=== PATIENT | male | born 1935 | race Caucasian/White ===

== ENCOUNTER 2019-03-02 13:49 | Observation (INO) ==
--- NOTE | 2019-03-02 14:00 | ERNOTE ---
Medical Problem HPI - Narrative Date of Service: 03/02/19 - General Chief Complaint: Nausea/Vomiting Time Seen by Provider: 03/02/19 13:59 Source: patient, RN notes reviewed Exam Limitations: no limitations - Immun/Allergies/Home Medications Allergies/Adverse Reactions: Allergies Penicillins Allergy (Verified 02/15/14 12:44) Sulfa (Sulfonamide Antibiotics) Allergy (Verified 02/15/14 12:44) Home Medications: HOME MEDICATIONS Acetaminophen [Tylenol Extra Strength] 500 mg PO PRN PRN 02/15/14 [Last Taken Unknown] Aspirin [Ecotrin] 325 mg PO DAILY 02/15/14 [Last Taken 02/14/14 09:00] Cholecalciferol (Vitamin D3) [Vitamin D] 2,000 unit PO DAILY 02/15/14 [Last Taken 02/14/14 09:00] Multivitamins [Multivitamin Maximiliano] 1 cap PO DAILY 02/15/14 [Last Taken 02/14/14 09:00] Psyllium Husk (with Sugar) [Metamucil Packet] 1 each PO DAILY 02/15/14 [Last Taken Unknown] Pramipexole Di-HCl 08/02/15 [Last Taken Unknown] Ascorbic Acid [Vitamin C] 1,000 mg PO DAILY 03/02/19 [Last Taken Unknown] Cholecalciferol (Vitamin D3) [Vitamin D3] 2,000 unit PO DAILY 03/02/19 [Last Taken Unknown] Finasteride [Proscar] 5 mg PO DAILY 03/02/19 [Last Taken Unknown] Loratadine 10 mg PO DAILY 03/02/19 [Last Taken Unknown] Losartan Potassium 50 mg PO BID 03/02/19 [Last Taken Unknown] Montelukast Sodium [Singulair] 10 mg PO DAILY 03/02/19 [Last Taken Unknown] Multivitamins [Multivitamin Maixmiliano] 1 cap PO DAILY 03/02/19 [Last Taken Unknown] Ranitidine HCl 300 mg PO DAILY 03/02/19 [Last Taken Unknown] Tamsulosin HCl [Flomax] 0.4 mg PO DAILY 03/02/19 [Last Taken Unknown] - History of Present History Narrative: Daniel is a 84 year old male brought to the ED by his family for nausea and vomiting. He has been nauseated for several days and attributes this to recently being changed from omeprazole to ranitidine. He also reports having pain in his epigastric region and chest. He has been fasting to have routine labwork drawn since 2200 last night. 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 His family also reports that he has been complaining of dizziness for some time and reports that he passes out at home occasionally. Review of Systems - Review of Systems Constitutional: Present: fatigue, malaise. Absent: fever, chills EYE: Present: no symptoms reported ENT: Absent: nose congestion, sore throat Respiratory: Present: cough. Absent: shortness of breath Cardiology: Present: chest pain, syncope. Absent: edema Gastrointestinal/Abdominal: Present: nausea, vomiting, eating less, drinking less. Absent: diarrhea Genitourinary: Present: no symptoms reported Musculoskeletal: Absent: muscle pain, joint pain Skin: Absent: rash, lesions Neurological: Present: dizziness/light-headedness. Absent: headache Endocrine: Present: no symptoms reported Hematologic/Lymphatic: Absent: easy bruising, easy bleeding Psych: Present: no symptoms reported Medical History (Updated 03/02/19 @ 19:21 by Alexa Stewart) BPH (benign prostatic hyperplasia) Hypertension Seasonal allergies Surgical History: Surgical History (Updated 03/02/19 @ 19:09 by Kathi Capellan NP) H/O heart artery stent Social History: Preferred Language Estonian Smoking Status Former smoker Alcohol Use none Drug Use none No Social History Section defined Physical Exam - Physical Exam General Appearance: Present: alert, thin, other - In no acute distress but appears to not feel well Head Exam: Present: normal inspection Eye Exam: Normal inspection: bilateral Ears, Nose, Throat: Present: normal ENT inspection, normal pharynx Neck: Present: normal inspection, nontender, supple Respiratory: Present: no respiratory distress, normal breath sounds, no accessory muscle use, lungs clear Cardiovascular/Chest: Present: regular rate, rhythm, no murmur, normal peripheral pulses Gastrointestinal/Abdominal: Present: nondistended, soft, tenderness - mild, epigastric Extremity Exam: Present: normal inspection, no edema Neurological Exam: Present: alert, oriented, normal mood/affect, no motor/sensory deficits Skin Exam: Present: warm/dry, pallor Progress - Results and Orders Patient's Lab Results:: I have reviewed the patient's lab results. - Vital Signs Patient's Vital Signs:: I have reviewed the patient's vital signs. Vital Signs: Vital Signs 03/02/19 13:49 Temperature 36.7 C Pulse Rate 109 H Respiratory Rate 18 Blood Pressure 125/92 H - EKG EKG #1 EKG: NSR, nonspecific ST T wave changes EKG read: Reviewed by me EKG #2 EKG: NSR, nonspecific ST T wave changes, unchanged from - today at 1401 EKG read: Reviewed by me - X-Ray X-Ray #1 X-Ray: chest Interpretation: Reviewed by me X-ray Comments: No acute cardiopulmonary process - CT/Ultrasound CT/Ultrasound Narrative: Abdominal US shows no acute process - Progress/Reassessment Chief Complaint: Nausea/Vomiting Progress:: Unchanged Progress Note-Subjective: 03/02/19 20:26 The patient was initially given a GI cocktail with some improvement. He became nauseous a short while later and was given Zofran. He has continued to complain of nausea and left sided chest pain off and on. He was given a liter of IV NS and has continued to be orthostatic. A second liter is currently infusing. Due to his symptoms along with an elevated WBC at 14,000 and a bilirubin of 1.2, an abdominal ultrasound was done. This was negative. A repeat EKG and troponin were done. The EKG was unchanged, but his troponin went up slightly from 0.019 to 0.032. He continues to have intermittent chest pain and nausea. Given the intermittent nature of his pain and his upset stomach, nitroglycerin and aspirin were not given. Dr. Chester was contacted and the patient will be admitted to observation. Departure Clinical Impression: Dehydration Chest pain Qualifiers: Chest pain type: unspecified Qualified Code(s): R07.9 - Chest pain, unspecified - Departure Disposition: Still a patient Condition: Fair Referrals: Mariaa Martinez, DERRICK OPERATOR [Primary Care Provider] -
[2019-03-02] MEDS ORDERED: MAG HYDROX/ALUMINUM HYD/SIMETH 30 ML UDC PO ONE (14:21)
[2019-03-02] MEDS ORDERED: LIDOCAINE HCL 20 ML UDC PO ONE (14:21)
[2019-03-02] MEDS ORDERED: BELLADONNA ALKALOIDS/PHENOBARB 60 ML BTL PO ONE (14:21)
[2019-03-02 14:39] LABS: Hematocrit 40.4 % (42.0-52.0); Hemoglobin 14.3 gm/dL (13.5-18.0); Mean Corpuscular Hemoglobin 32.2 pg (27-31); Mean Corpuscular Hgb Conc 35.4 g/dl (32-36); Neutrophil # 10.4 K/mm3 (1.3-6.0); Neutrophil % 73.2 % (42-75.0); Platelet Count 230 K/mm3 (150-450); Red Blood Count 4.44 M/mm3 (4.7-6.0); Red Cell Distribution Width 12.2 % (11.5-14.0); White Blood Count 14.2 K/mm3 (4.0-10.5)
[2019-03-02 14:56] LABS: Albumin * 3.8 gm/dl (3.4-5.0); Anion Gap 16.4 mmol/L (6.8-13.8); BUN/Creatinine Ratio 17.4 (9.0-21.6); Bilirubin, Total 1.2 mg/dL (0.0-1.1); Ca. Corrected For Albumin 8.7 mg/dL (8.4-10.2); Calcium * 8.9 mg/dL (7.9-10.9); Potassium 4.4 mmol/L (3.4-4.6); Total Protein 6.8 gm/dL (6.2-8.2)
[2019-03-02 14:57] LABS: Troponin I 0.019 ng/mL (0.00-0.10)
[2019-03-02] MEDS ORDERED: NORMAL SALINE 1,000 ML IV ONE ×2 (15:39→19:23)
[2019-03-02] MEDS ORDERED: ONDANSETRON HCL/PF 2 MG/ML VIAL IV ONE (16:00)
[2019-03-02] MEDS ORDERED: ONDANSETRON HCL/PF 2 MG/ML VIAL ONE (16:01)
[2019-03-02 16:26] LABS: Amylase * 59 U/L (25-115); Lipase 152 U/L (73-393)
[2019-03-02] MEDS ORDERED: CALCIUM CARBONATE 500 MG TAB.CHEW PO PRN (22:02)
--- NOTE | 2019-03-03 00:43 | HP ---
Chief Complaint - Chief Complaint Date of Service: 03/03/19 Time of Service: 00:42 Chief Complaint: dehydration, chest pain History of Present Illness: 84-year-old male presented to the ER yesterday evening with 2 weeks of nausea, vomiting, diarrhea. Patient states he is been able to keep anything down really for the last few days and is felt weak and tired. We brought him to the ER was that he started having chest pain the day prior to admission. Initial work-up showed him to be orthostatic with his pressure dropped from 130/80 and down into the 90s over 60s as well as being symptomatic with dizziness and lightheadedness. EKG obtained in the ER was normal sinus rhythm and showed no ST changes. Initial troponin was negative. Patient was prepared to be discharged home with follow-up with his PCP but it was decided to obtain another troponin level prior to this which increased slightly. He was brought in due to concern of possible acute coronary syndrome even though his troponins were technically still with the negative range but due to his endorsement of chest pain that started in his left side and radiated up into his shoulder as well as the nausea and vomiting that he had been having, it was decided to observation overnight. Continued monitoring of his cardiac enzymes showed him to gradually increase overnight with his most recent one being 0.143. Again no changes in his EKG. Pain slightly improved with nitro sublingual. It was decided to transfer the patient to [facility] for cardiac monitoring due to his history of ACS requiring stenting many years ago. 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 Pertinent labs include a mildly elevated white count of 14.2 with no shift. He also had an acute kidney injury with a creatinine of 1.9 that trended downward overnight to 1.6 with an increase of his GFR of 36-43. UA was negative. The above-mentioned cardiac enzymes were the only other really pertinent labs. His vital signs are stable aside from the orthostatic hypotension. Heart rate was within normal limits. Maintained oxygen saturations within normal limits Medical History (Updated 03/03/19 @ 01:46 by Hailey Castañeda RN) Restless leg syndrome BPH (benign prostatic hyperplasia) Hypertension Seasonal allergies Surgical History: Surgical History (Updated 03/03/19 @ 00:43 by Bdudy Chester DO) H/O heart artery stent Social History: Patient Lives/Resources Home Utilized Preferred Language Dutch Do you have any hindu or Yes: methodist cultural preference? Smoking Status Former smoker Have you smoked in the past 12 No months Alcohol Use none Drug Use none No Social History Section defined Review Of Systems (GEN) - Review of Systems Generalized/Overall Review: Present: Weakness, Weight loss. Absent: Chills, Fever EENTM: Present: No Symptoms Reported Respiratory: Present: Shortness of Breath. Absent: Cough Cardiac: Present: Chest Pain. Absent: Edema, Palpitations, Syncope Abdominal: Present: Nausea, Vomiting, Abdominal Pain, Diarrhea Genitourinary: Present: No Symptoms Reported Musculoskeletal: Present: No Symptoms Reported Neurological: Present: No Symptoms Reported Skin: Present: No Symptoms Reported Endocrine: Present: No Symptoms Reported Allergies/Adverse Reactions: Allergies Allergy/AdvReac Type Severity Reaction Status Date / Time Penicillins Allergy Verified 02/15/14 12:44 Sulfa (Sulfonamide Allergy Verified 02/15/14 12:44 Antibiotics) Home Medications: HOME MEDICATIONS Acetaminophen [Tylenol Extra Strength] 500 mg PO PRN PRN 02/15/14 [Last Taken Unknown] Aspirin [Ecotrin] 325 mg PO DAILY 02/15/14 [Last Taken 03/01/19] Cholecalciferol (Vitamin D3) [Vitamin D] 2,000 unit PO DAILY 02/15/14 [Last Taken 03/01/19] Multivitamins [Multivitamin Maximiliano] 1 cap PO DAILY 02/15/14 [Last Taken 03/01/19] Psyllium Husk (with Sugar) [Metamucil Packet] 1 each PO DAILY 02/15/14 [Last Taken 03/01/19] Ascorbic Acid [Vitamin C] 1,000 mg PO DAILY 03/02/19 [Last Taken 03/01/19] Finasteride [Proscar] 5 mg PO DAILY 03/02/19 [Last Taken Unknown] Loratadine 10 mg PO DAILY 03/02/19 [Last Taken 03/01/19] Losartan Potassium 50 mg PO BID 03/02/19 [Last Taken 03/01/19] Montelukast Sodium [Singulair] 10 mg PO DAILY 03/02/19 [Last Taken 03/01/19] Ranitidine HCl 300 mg PO DAILY 03/02/19 [Last Taken 03/01/19] Tamsulosin HCl [Flomax] 0.4 mg PO DAILY 03/02/19 [Last Taken 03/01/19] Triamcinolone Acetonide [Nasacort] 1 spray NS DAILY PRN 03/02/19 [Last Taken Unknown] Exam - Exam Vital Signs: Vital Signs - Last Taken Temp 37.5 C 03/02/19 21:15 Pulse 94 03/02/19 21:15 Resp 16 03/02/19 21:15 BP 157/80 H 03/02/19 21:15 Pulse Ox 95 03/02/19 21:15 Constitutional: Present: Alert, Oriented x3, Elderly ENT Exam: Present: nasal congestion, nasal drainage, pharyngeal erythema Eye Exam: bilateral eye: normal inspection Neck: Present: non-tender, supple Back Exam: Present: no CVA tenderness - Your Respiratory: Present: lungs clear, normal breath sounds, no respiratory distress Cardiovascular/Chest: Present: normal peripheral pulses - Is, regular rate, rhythm, no edema Abdomen: Present: Normal bowel sounds, soft, tender - Diffusely that diffusely tender, nondistended, no rebound or guarding. Worse in the left lower quadrant. Absent: suprapubic tenderness, firm, positive Palmer sign /Rectal: Present: Exam deferred Lymphatic: Present: no adenopathy Neurologic: Present: alert, normal mood/affect, oriented x 3 - No, dizzy/light- headedness - With standing secondary to orthostatic hypotension Appearance: Present: appropriate appearance, appropriate insight, no memory impairment Eye contact: Present: cooperative, good eye contact Thoughts: Present: normal thought pattern, normal mood /affect Diagnostic Studies: Abnormal Lab Results 03/02/19 03/02/19 Range/Units 14:35 14:35 WBC 14.2 H (4.0-10.5) K/mm3 RBC 4.44 L (4.7-6.0) M/mm3 Hct 40.4 L (42.0-52.0) % MCH 32.2 H (27-31) pg Immature Gran # (Auto) 0.06 H (0.000-0.0310) K/mm3 Lymphocytes % 19.0 L (20-51) % Neutrophils # 10.4 H (1.3-6.0) K/mm3 Carbon Dioxide 22.0 L (24-32.6) mmol/L Anion Gap 16.4 H (6.8-13.8) mmol/L BUN 33 H (6-23) mg/dL Creatinine 1.90 H (0.4-1.4) mg/dL Est GFR (Non-Af Amer) 36 L (60-130) mL/min Random Glucose 139 H (70-110) mg/dL Total Bilirubin 1.2 H (0.0-1.1) mg/dL ALT 15 L (19-67) U/L Laboratory Results WBC 14.2 K/mm3 (4.0-10.5) H 03/02/19 14:35 RBC 4.44 M/mm3 (4.7-6.0) L 03/02/19 14:35 Hgb 14.3 gm/dL (13.5-18.0) 03/02/19 14:35 Hct 40.4 % (42.0-52.0) L 03/02/19 14:35 MCV 91.0 fl (78-100) 03/02/19 14:35 MCH 32.2 pg (27-31) H 03/02/19 14:35 MCHC 35.4 g/dl (32-36) 03/02/19 14:35 RDW 12.2 % (11.5-14.0) 03/02/19 14:35 Plt Count 230 K/mm3 (150-450) 03/02/19 14:35 MPV 10.0 fl (8-11.3) 03/02/19 14:35 Immature Gran % (Auto) 0.40 % (0.001-0.429) 03/02/19 14:35 Immature Gran # (Auto) 0.06 K/mm3 (0.000-0.0310) H 03/02/19 14:35 73.2 % (42-75.0) 03/02/19 14:35 19.0 % (20-51) L 03/02/19 14:35 7.2 % (0.0-9) 03/02/19 14:35 0.1 % (0.0-3.0) 03/02/19 14:35 0.1 % (0.0-1.0) 03/02/19 14:35 Nucleated RBC % 0.0 k/mm3 (0-1) 03/02/19 14:35 10.4 K/mm3 (1.3-6.0) H 03/02/19 14:35 2.69 k/mm3 (1.5-3.5) 03/02/19 14:35 1.0 k/mm3 (0.0-1.0) 03/02/19 14:35 0.0 k/mm3 (0.0-0.7) 03/02/19 14:35 Absolute Basophils 0.0 k/mm3 (0.0-0.1) 03/02/19 14:35 Sodium 136 mmol/L (132-142) 03/02/19 14:35 137 mmol/L (130-142) 03/02/19 14:35 Potassium 4.4 mmol/L (3.4-4.6) 03/02/19 14:35 Chloride 102 mmol/L (97-106) 03/02/19 14:35 Carbon Dioxide 22.0 mmol/L (24-32.6) L 03/02/19 14:35 16.4 mmol/L (6.8-13.8) H 03/02/19 14:35 BUN 33 mg/dL (6-23) H 03/02/19 14:35 1.90 mg/dL (0.4-1.4) H 03/02/19 14:35 Est GFR (Non-Af Amer) 36 mL/min (60-130) L 03/02/19 14:35 17.4 (9.0-21.6) 03/02/19 14:35 139 mg/dL (70-110) H 03/02/19 14:35 Calcium 8.9 mg/dL (7.9-10.9) 03/02/19 14:35 Calcium Adj for Albumin 8.7 mg/dL (8.4-10.2) 03/02/19 14:35 1.2 mg/dL (0.0-1.1) H 03/02/19 14:35 AST 16 U/L (0-48) 03/02/19 14:35 ALT 15 U/L (19-67) L 03/02/19 14:35 75 U/L (50-170) 03/02/19 14:35 0.041 ng/mL (0.00-0.10) 03/02/19 22:35 6.8 gm/dL (6.2-8.2) 03/02/19 14:35 3.8 gm/dl (3.4-5.0) 03/02/19 14:35 Amylase 59 U/L (25-115) 03/02/19 14:35 152 U/L (73-393) 03/02/19 14:35 Assessment/Plan - Narrative Narrative: 84-year-old male placed in observation for gastroenteritis, dehydration, acute kidney injury as well his recent onset chest pain. While here troponins continue to increase overnight though there are no EKG changes. He was started on Lovenox and aspirin was continued. He was started on a statin. Vital signs remained stable and is afebrile. Due to patient's history of acute coronary syndrome requiring stenting years prior it was thought best to transfer patient [facility] for likely catheterization as patient continues to have chest pain with radiation into his left shoulder as well as nausea vomiting. Again most likely this is all related to his fluid deficit and his recent illness but I feel like it is best that he is in a hospital that has cardiac monitoring with the ability to intervene if needed. Case was discussed with Dr. Mandie Poole of who was in agreement with the treatment plan and accepted transfer. Patient will follow-up with me once he is discharged from the hospital emergency. Kidney function improved following 2 L of fluid given overnight. Initial creatinine is 1.9 that dropped down to 1.66, GFR improved from 36 and 43. Will start 1 more bag of fluid prior to transfer to help with this as he is still orthostatic Patient still nauseated but has not vomited since being here. This has been controlled with antinausea medicines. - Assessment/Plan (1) Gastroenteritis Problem: Acute (2) Allergic rhinitis Problem: Acute (3) Elevated troponin I level Problem: Acute (4) ACS (acute coronary syndrome) Problem: Suspected (5) Chest pain Problem: Acute Qualifiers: Chest pain type: unspecified Qualified Code(s): R07.9 - Chest pain, unspecified (6) MELANIE (acute kidney injury) Problem: Acute
[2019-03-03] MEDS ORDERED: TRIAMCINOLONE ACETONIDE NS PRN ×2 (00:45→07:00)
[2019-03-03 00:52] LABS: Urine Bilirubin Negative (NEGATIVE); Urine Blood Negative /ul (NEGATIVE); Urine Ketone 5 mg/dL (NEGATIVE); Urine Nitrite Negative (NEGATIVE); Urine Protein Negative (NEGATIVE); Urine Urobilinogen Normal (NORMAL)
[2019-03-03 01:00] LABS: Urine Appearance Clear (CLEAR); Urine Bacteria TRACE; Urine Color Yellow; Urine RBC None Seen /hpf (0-5); Urine WBC None Seen /hpf (0-5)
[2019-03-03 05:29] LABS: Hematocrit 36.8 % (42.0-52.0); Mean Cell Volume 92.5 fl (78-100); Mean Corpuscular Hemoglobin 32.7 pg (27-31); Mean Corpuscular Hgb Conc 35.3 g/dl (32-36); Mean Platelet Volume 10.1 fl (8-11.3); Neutrophil # 8.4 K/mm3 (1.3-6.0); Neutrophil % 68.2 % (42-75.0); Platelet Count 182 K/mm3 (150-450); Red Blood Count 3.98 M/mm3 (4.7-6.0); Red Cell Distribution Width 12.3 % (11.5-14.0); White Blood Count 12.4 K/mm3 (4.0-10.5)
[2019-03-03 05:46] LABS: Albumin * 3.3 gm/dl (3.4-5.0); Anion Gap 15.7 mmol/L (6.8-13.8); BUN/Creatinine Ratio 15.7 (9.0-21.6); Bilirubin, Total 1.2 mg/dL (0.0-1.1); Ca. Corrected For Albumin 8.4 mg/dL (8.4-10.2); Calcium * 8.2 mg/dL (7.9-10.9); Carbon Dioxide 22.6 mmol/L (24-32.6); Potassium 4.3 mmol/L (3.4-4.6); Total Protein 6.1 gm/dL (6.2-8.2); Troponin I 0.102 ng/mL (0.00-0.10)
[2019-03-03] MEDS ORDERED: ENOXAPARIN SODIUM 40 MG/0.4 ML SYRG SC SCH ×2 (07:00→08:00)
[2019-03-03] MEDS ORDERED: LORATADINE 10 MG TABLET PO SCH (09:00)
[2019-03-03] MEDS ORDERED: FAMOTIDINE 20 MG TABLET PO SCH (09:00)
[2019-03-03] MEDS ORDERED: TAMSULOSIN HCL 0.4 MG CAP.SR.24H PO SCH ×2 (09:00→18:00)
[2019-03-03] MEDS ORDERED: MONTELUKAST SODIUM 10 MG TABLET PO SCH ×2 (09:00→21:00)
[2019-03-03] MEDS ORDERED: ASPIRIN 325 MG TABLET.DR PO SCH (09:00)
[2019-03-03] MEDS ORDERED: LOSARTAN POTASSIUM 50 MG TABLET PO SCH (09:00)
[2019-03-03] MEDS ORDERED: NORMAL SALINE 1,000 ML IV PRN (10:24)
[2019-03-03] MEDS ORDERED: NITROGLYCERIN 0.4 MG/TAB BTL SL PRN (10:25)
[2019-03-03 10:46] VITALS: BP 127/77
--- NOTE | 2019-03-03 11:16 | DS ---
Transfer Discharge Summary - Diagnosis(s)/Problems (1) Chest pain Problem: Acute (2) Elevated troponin I level Problem: Acute (3) Gastroenteritis Problem: Acute (4) Allergic rhinitis Problem: Acute (5) ACS (acute coronary syndrome) Problem: Suspected (6) MELANIE (acute kidney injury) Problem: Acute - Course Description of Stay: 84-year-old male presented to the ER yesterday evening with 2 weeks of nausea, vomiting, diarrhea. Patient states he is been able to keep anything down really for the last few days and is felt weak and tired. We brought him to the ER was that he started having chest pain the day prior to admission. Initial work-up showed him to be orthostatic with his pressure dropped from 130/80 and down into the 90s over 60s as well as being symptomatic with dizziness and lightheadedness. EKG obtained in the ER was normal sinus rhythm and showed no ST changes. Initial troponin was negative. Patient was prepared to be discharged home with follow-up with his PCP but it was decided to obtain another troponin level prior to this which increased slightly. He was brought in due to concern of possible acute coronary syndrome even though his troponins were technically still with the negative range but due to his endorsement of chest pain that started in his left side and radiated up into his shoulder as well as the nausea and vomiting that he had been having, it was decided to observation overnight. Continued monitoring of his cardiac enzymes showed him to gradually increase overnight with his most recent one being 0.143. Again no changes in his EKG. Pain slightly improved with nitro sublingual. It was decided to transfer the patient to [facility] for cardiac monitoring due to his history of ACS requiring stenting many years ago. 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 Pertinent labs include a mildly elevated white count of 14.2 with no shift. He also had an acute kidney injury with a creatinine of 1.9 that trended downward overnight to 1.6 with an increase of his GFR of 36-43. UA was negative. The above-mentioned cardiac enzymes were the only other really pertinent labs. His vital signs are stable aside from the orthostatic hypotension. Heart rate was within normal limits. Maintained oxygen saturations within normal limits Procedures Performed: none - Results and Findings Results and Findings: Laboratory Results - last 24 hr 03/02/19 03/02/19 03/02/19 14:35 14:35 14:35 WBC 14.2 H RBC 4.44 L Hgb 14.3 Hct 40.4 L MCV 91.0 MCH 32.2 H MCHC 35.4 RDW 12.2 Plt Count 230 MPV 10.0 Immature Gran % (Auto) 0.40 Immature Gran # (Auto) 0.06 H Neutrophils % 73.2 Lymphocytes % 19.0 L Monocytes % 7.2 Eosinophils % 0.1 Basophils % 0.1 Nucleated RBC % 0.0 Neutrophils # 10.4 H Lymphocytes # 2.69 Monocytes # 1.0 Eosinophils # 0.0 Absolute Basophils 0.0 Sodium 136 Plasma Sodium 137 Potassium 4.4 Chloride 102 Carbon Dioxide 22.0 L Anion Gap 16.4 H BUN 33 H Creatinine 1.90 H Est GFR (Non-Af Amer) 36 L BUN/Creatinine Ratio 17.4 Random Glucose 139 H Calcium 8.9 Calcium Adj for Albumin 8.7 Total Bilirubin 1.2 H AST 16 ALT 15 L Alkaline Phosphatase 75 Troponin I 0.019 Total Protein 6.8 Albumin 3.8 Amylase 59 Lipase 152 Urine Color Urine Appearance Urine pH Ur Specific Leola Urine Protein Urine Glucose (UA) Urine Ketones Urine Blood Urine Nitrate Urine Bilirubin Urine Urobilinogen Ur Leukocyte Esterase Urine RBC Urine WBC Ur Epithelial Cells Urine Bacteria Urine Culture Comments 03/02/19 03/02/19 03/03/19 19:50 22:35 00:48 WBC RBC Hgb Hct MCV MCH MCHC RDW Plt Count MPV Immature Gran % (Auto) Immature Gran # (Auto) Neutrophils % Lymphocytes % Monocytes % Eosinophils % Basophils % Nucleated RBC % Neutrophils # Lymphocytes # Monocytes # Eosinophils # Absolute Basophils Sodium Plasma Sodium Potassium Chloride Carbon Dioxide Anion Gap BUN Creatinine Est GFR (Non-Af Amer) BUN/Creatinine Ratio Random Glucose Calcium Calcium Adj for Albumin Total Bilirubin AST ALT Alkaline Phosphatase Troponin I 0.032 0.041 Total Protein Albumin Amylase Lipase Urine Color Yellow Urine Appearance Clear Urine pH 6.0 Ur Specific [place] 1.020 Urine Protein Negative Urine Glucose (UA) Negative Urine Ketones 5 Urine Blood Negative Urine Nitrate Negative Urine Bilirubin Negative Urine Urobilinogen Normal Ur Leukocyte Esterase Negative Urine RBC None seen Urine WBC None seen Ur Epithelial Cells None seen Urine Bacteria Trace Urine Culture Comments No culture indicated 03/03/19 03/03/19 03/03/19 05:27 05:27 07:07 WBC 12.4 H RBC 3.98 L Hgb 13.0 L Hct 36.8 L MCV 92.5 MCH 32.7 H MCHC 35.3 RDW 12.3 Plt Count 182 MPV 10.1 Immature Gran % (Auto) 0.20 Immature Gran # (Auto) 0.03 Neutrophils % 68.2 Lymphocytes % 23.5 Monocytes % 7.9 Eosinophils % 0.0 Basophils % 0.2 Nucleated RBC % 0.0 Neutrophils # 8.4 H Lymphocytes # 2.91 Monocytes # 1.0 Eosinophils # 0.0 Absolute Basophils 0.0 Sodium 139 Plasma Sodium 139 Potassium 4.3 Chloride 105 Carbon Dioxide 22.6 L Anion Gap 15.7 H BUN 26 H Creatinine 1.66 H Est GFR (Non-Af Amer) 42 L BUN/Creatinine Ratio 15.7 Random Glucose 123 H Calcium 8.2 Calcium Adj for Albumin 8.4 Total Bilirubin 1.2 H AST 16 ALT 13 L Alkaline Phosphatase 67 Troponin I 0.102 H 0.143 H* Total Protein 6.1 L Albumin 3.3 L Amylase Lipase Urine Color Urine Appearance Urine pH Ur Specific [place] Urine Protein Urine Glucose (UA) Urine Ketones Urine Blood Urine Nitrate Urine Bilirubin Urine Urobilinogen Ur Leukocyte Esterase Urine RBC Urine WBC Ur Epithelial Cells Urine Bacteria Urine Culture Comments - Medications Medications: Active Medications Aspirin (Aspirin Enteric Coated) 325 mg PO DAILY [facility] Stop: 04/02/19 09:01 Last Admin: 03/03/19 08:24 Dose: 325 mg Documented by: Calcium Carbonate/Glycine (Tums) 500 mg PO QID PRN PRN Reason: Dyspepsia Stop: 04/01/19 22:03 Last Admin: 03/02/19 22:12 Dose: 500 mg Documented by: Enoxaparin Sodium (Lovenox) 40 mg SC Q24H [facility] Stop: 04/02/19 08:01 Last Admin: 03/03/19 08:23 Dose: 40 mg Documented by: Famotidine (Pepcid) 40 mg PO DAILY [facility] Stop: 04/02/19 09:01 Last Admin: 03/03/19 08:24 Dose: 40 mg Documented by: Sodium Chloride (Sodium Chloride 0.9%) 1,000 mls @ 125 mls/hr IV .Q8H PRN PRN Reason: HYDRATION Stop: 04/02/19 10:25 Last Admin: 03/03/19 10:30 Dose: 125 mls/hr Documented by: Loratadine (Claritin) 10 mg PO DAILY [facility] Stop: 04/02/19 09:01 Last Admin: 03/03/19 08:23 Dose: 10 mg Documented by: Losartan Potassium (Cozaar) 50 mg PO BID [facility] Stop: 04/02/19 09:01 Last Admin: 03/03/19 08:24 Dose: 50 mg Documented by: Nitroglycerin (Nitrostat) 0.4 mg SL Q5MIN PRN PRN Reason: Chest Pain Stop: 04/02/19 10:26 Last Admin: 03/03/19 10:38 Dose: 0.4 mg Documented by: Discontinued Medications Al Hydrox/Mg Hydrox/Simethicone (Maalox Plus Suspension) 30 ml PO ONCE ONE Stop: 03/02/19 14:22 Last Admin: 03/02/19 14:30 Dose: 30 ml Documented by: Belladonna/Phenobarbital ( Elixir) 20 ml PO ONCE ONE Stop: 03/02/19 14:22 Last Admin: 03/02/19 14:30 Dose: 20 ml Documented by: Sodium Chloride (Sodium Chloride 0.9%) 1,000 mls @ 999 mls/hr IV .Q1H1M ONE Stop: 03/02/19 16:39 Last Infusion: 03/02/19 18:03 Dose: Infused Documented by: Sodium Chloride (Sodium Chloride 0.9%) 1,000 mls @ 999 mls/hr IV .Q1H1M ONE Stop: 03/02/19 20:23 Last Infusion: 03/02/19 20:49 Dose: Infused Documented by: Lidocaine HCl (Lidocaine Hcl Viscous 2%) 20 ml PO ONCE ONE Stop: 03/02/19 14:22 Last Admin: 03/02/19 14:30 Dose: 20 ml Documented by: Ondansetron HCl (Zofran) 4 mg IV ONCE ONE Stop: 03/02/19 16:01 Last Admin: 03/02/19 16:03 Dose: 4 mg Documented by: - Disposition Disposition: Short Term Hospital Inpatient Condition: Stable Discharge Date: 03/03/19 Discharge Time: 11:15
[2019-03-03] MEDS ORDERED: ROSUVASTATIN CALCIUM 20 MG TABLET PO SCH (21:00)
[2019-03-03] MEDS ORDERED: ROSUVASTATIN CALCIUM 10 MG TABLET PO SCH (21:00)
== END 2019-03-03 11:30 | disposition short-term general hospital (02) ==
LOC: MS 13:49 → ER 13:49 → MS 21:10
PROVIDERS: ADMIT Family Medicine; ATTEND Family Medicine
CPT/HCPCS: 36415; 71020; 71046; 76700; 80053; 81001; 82150; 83690; 84484; 85025; 93005; 96361; 96372; 96374; 99285; G0378; J2405